=== PATIENT | male | born 1945 | race Caucasian/White ===

== ENCOUNTER 2019-05-01 10:00 | Emergency (ER) | payer MEDICARE, OTHER ==
[2019-05-01] MEDS ORDERED: Succinylcholine Chloride 20 MG/ML 10 ml SYRINGE FS ONE (12:42)
[2019-05-01] MEDS ORDERED: PROPOFOL 200 MG/20 ML VIAL ONE (12:42)
[2019-05-01] MEDS ORDERED: Lidocaine 1% PF 5 ML VIAL ONE (12:42)
--- NOTE | 2019-05-01 13:19 | CON ---
DATE OF CONSULTATION: 05/01/2019 HISTORY OF PRESENT ILLNESS: Mr. Hoyos is a 74-year-old gentleman, whom we have seen previously in the office, most recently for EGD and colonoscopy in 2015 for dysphagia and colon cancer screening. In the past, we have also seen for bolus obstruction in the esophagus. This last occurred in 12/2011, there was a ring at the GE junction at that time. He also has a prior history of colon polyps and short-segment Robledo esophagus. I was called as he was eating yesterday some chicken around noon, he felt it got stuck in his esophagus, he could not drink anything after that or swallow. He threw up multiple times throughout the day and night. He did not come to the emergency room. He did not call the on-call physician. Ultimately, he called this office this morning, asked about coming in to be seen for this and was directed that he come to the emergency room. Here, the emergency room doctor notes that they gave him a liter of fluid, they gave some glucagon with really no effect. These did not able to handle secretions and I was called. The patient denies any chest pain, shortness of breath, throat pain, or difficulty breathing. He denies any reflux. He is accompanied by his . PAST MEDICAL HISTORY: Hyperlipidemia, high cholesterol, Robledo esophagus, hypertension, previous partial lobectomy secondary to lung cancer, prior history of coronary artery bypass grafting, and previous EGD and colonoscopy. SOCIAL HISTORY: Negative for drugs or tobacco. ALLERGIES: NONE KNOWN. MEDICATIONS: 1. Aspirin. 2. Carvedilol. 3. Lisinopril. 4. Simvastatin. 5. Thalitone. 6. Dorzolamide eyedrops. PHYSICAL EXAMINATION: VITAL SIGNS: Blood pressure 179/84, respirations 16, and pulse 83. GENERAL: The patient is resting comfortably in bed. He is in no distress. . LUNGS: Clear. LUNGS: Clear. HEART: Regular rate and rhythm without clicks or murmurs. ABDOMEN: Soft, nontender. Definitely protuberant abdomen. EXTREMITIES: Reveal trace edema. No cyanosis or clubbing. ASSESSMENT: Likely, bolus obstruction of the esophagus, this has happened previously in the past. He also has had a previous history of Robledo esophagus, however, the last EGD in 2014 showed none. RECOMMENDATIONS: 1. EGD with removal of foreign body. He will need to be intubated for this. 2. He has a history of colon polyps, villous adenoma in 2015. He is overdue for followup, we would recommend after this to come back for a followup EGD and colonoscopy, for possible dilatation and removal of polyps. Job ID: [id number]
--- NOTE | 2019-05-01 16:38 | OP ---
DATE OF PROCEDURE: 05/01/2019 PREPROCEDURE DIAGNOSIS: Dysphagia with suspected bolus obstruction in the esophagus. POSTPROCEDURE DIAGNOSES: 1. Chicken bolus in the distal esophagus with a tight stricture, removed endoscopically. 2. Quite a bit of inflammation present in the gastroesophageal junction and some stricturing there, therefore dilatation was not performed in the acute setting. 3. Esophagogastroduodenoscopy with mild gastritis. 4. Normal duodenum. ANESTHESIA: General endotracheal anesthesia. RECOMMENDATIONS: 1. PPI daily. 2. [place] soft foods with no chicken, beef, nor bread until repeat EGD and dilatation. 3. Repeat EGD with dilatation in 1 to 2 weeks. The patient is also to follow up colonoscopy with regard to history of polyps and villous adenoma over 4 years ago. He is 1 year overdue presently. 4. History of Robledo esophagus. He is due for surveillance for that as well. PROCEDURE IN DETAIL: The patient was informed of the risk, benefits, and possible complications of endoscopy including perforation, bleeding, reaction to medication, and aspiration. Informed consent was obtained. The patient was brought to endoscopy suite, where he was sedated in gradual fashion. Once he was comfortable, he was intubated to secure the airway. The endoscope was then advanced into the esophagus, where a meat bolus was found in the distal esophagus. It was removed with a tripod grasping forceps, Garber retrieval net, and snare in combination. I spent about 20 minutes to get it broken down after removing enough those to fall into the stomach. Once this was cleared, the remainder of the esophagus was evaluated. There was quite a bit of edema and erosion at the GE junction as this bolus obstruction has been stuck for over 24 hours at this time. Dilatation was not performed for that reason. The stomach was found to be normal except for hiatal hernia and some antral gastritis. Retroflexed views were normal. The duodenum was normal. The scope was then removed. The patient tolerated the procedure well. There were no complications. He will be scheduled for a followup EGD in the outpatient setting in 1 to 2 weeks for dilatation of the stricture and will also proceed with surveillance colonoscopy at that time. Job ID: [id number]
== END 2019-05-01 15:00 | disposition home or self-care (01) ==
LOC: ERS 10:00
DX: T18.128A Food in esophagus causing other injury, initial encounter (principal); E78.5 Hyperlipidemia, unspecified; E78.00 Pure hypercholesterolemia, unspecified; I10 Essential (primary) hypertension; Z79.899 Other long term (current) drug therapy; Z79.82 Long term (current) use of aspirin
CPT/HCPCS: 99291; J2001; J2704; J7620

== ENCOUNTER 2019-08-07 10:10 | Outpatient (CLI) | payer MEDICARE, OTHER ==
--- NOTE | 2019-08-07 11:18 | RAD ---
CHEST 2 VIEWS: Date: 08/07/2019 HISTORY: Cough. COMPARISON: Radiograph dated 04/12/17. FINDINGS: The heart size is mildly enlarged. There is abnormally dilated left main pulmonary artery, although s imilar from the comparison examination. No confluent air space consolidation, pneumothorax, or effusion. Increased extrapleural flap along th e left lateral hemithorax, unchanged, possibly postsurgical in nature. IMPRESSION: Similar examination of the chest. Chronic findings. POS: C
[2019-08-07 14:32] LABS: ALT (SGPT) 11 U/L (8-55); AST (SGOT) 12 U/L (5-34); Albumin 4.1 g/dL (3.4-4.8); Alkaline Phosphatase 60 U/L (40-110); Anion Gap 11 mmol/L (10-20); BUN (Urea Nitrogen) 15 mg/dL (8.4-25.7); Bilirubin, Total 0.9 mg/dL (0.2-1.2); Calc. Creatinine Clearance 0 mL/min (70-130); Calcium 9.1 mg/dL (7.8-10.44); Carbon Dioxide 33 mmol/L (23-31); Cardiac Risk 3.4 (Less than 4.5); Chloride 95 mmol/L (98-107); Cholesterol 156 mg/dl (< 200 Desired); Estimated GFR-MDRD 85; Globulin 2.8 g/dL (2.4-3.5); Glucose 114 mg/dL (83-110); HDL Cholesterol 46 mg/dL (>60 Neg Risk); LDL Cholesterol, Calculated 92 mg/dL; Protein, Total 6.9 g/dL (5.8-8.1); Sodium 135 mmol/L (136-145); Triglycerides 91 mg/dL (Less than 150)
== END 2019-08-07 10:11 | disposition home or self-care (01) ==
LOC: SCSRAD 10:10
PROVIDERS: ATTEND Family Medicine
DX: R05 Cough (principal); E78.5 Hyperlipidemia, unspecified
CPT/HCPCS: 71046; 80053; 80061

== ENCOUNTER 2020-11-07 10:21 | Emergency (ER) | payer MEDICARE, OTHER ==
[2020-11-07 12:29] LABS: #Eosinphils 0.2 thou/uL (0.0-0.7); #Lymphocytes 1.2 thou/uL (1.20-3.40); #Monocytes 0.5 thou/uL (0.11-0.59); #Neutrophils 5.2 thou/uL (1.40-6.50); %Basophils 0.1 % (0.0-1.0); %Eosinophils 2.8 % (0.0-10.0); %Lymphocytes 16.3 % (21.0-51.0); %Monocytes 6.4 % (0.0-10.0); %Neutrophils 74.3 % (42.0-75.0); Hemoglobin 14.6 g/dL (14.0-18.0); Mean Corpuscular HGB CONC 34.2 g/dL (32.0-36.0); Mean Corpuscular Hemoglobin 33.1 pg (27.0-31.0); Mean Corpuscular Volume 96.7 fL (78.0-98.0); Mean Platelet Volume 7.1 fL (7.4-10.4); Platelet Count 202 thou/uL (130-400); RBC Distribution Width 11.6 % (11.5-14.5); Red Blood Cell (RBC) Count 4.42 mill/uL (4.70-6.10); White Blood Cell (WBC) Count 7.1 thou/uL (4.8-10.8)
[2020-11-07 12:35] LABS: PTT 27.9 sec (22.9-36.1); Prothrombin Time 13.2 sec (12.0-14.7)
[2020-11-07 12:48] LABS: ALT (SGPT) 14 U/L (8-55); AST (SGOT) 17 U/L (5-34); Albumin 3.9 g/dL (3.4-4.8); Alkaline Phosphatase 58 U/L (40-110); Anion Gap 16 mmol/L (10-20); BUN (Urea Nitrogen) 13 mg/dL (8.4-25.7); Bilirubin, Total 0.9 mg/dL (0.2-1.2); Calc. Creatinine Clearance 0 mL/min (70-130); Calcium 8.7 mg/dL (7.8-10.44); Carbon Dioxide 27 mmol/L (23-31); Chloride 97 mmol/L (98-107); Glucose 128 mg/dL (83-110); Potassium 3.6 mmol/L (3.5-5.1); Protein, Total 6.9 g/dL (5.8-8.1); Sodium 136 mmol/L (136-145)
[2020-11-07] MEDS ORDERED: Ondansetron HCl/PF 4 MG/2 ML Vial IVP PRN (12:59)
[2020-11-07 14:58] LABS: SARS-CoV-2 NAA Rapid Test Not Detected (NotDetected)
[2020-11-07] MEDS ORDERED: Succinylcholine 200 MG/10 ml SYRINGE FS ONE (15:12)
[2020-11-07] MEDS ORDERED: Lidocaine 1% PF 5 ML VIAL ONE (15:12)
[2020-11-07] MEDS ORDERED: PROPOFOL 200 MG/20 ML VIAL ONE (15:12)
[2020-11-07] MEDS ORDERED: Labetalol HCl 100 MG/20 ML VIAL ONE (16:23)
[2020-11-07] MEDS ORDERED: hydrALAZINE 20 MG/ML VIAL ONE (16:46)
== END 2020-11-07 14:25 | disposition admitted as inpatient to this hospital (09) ==
LOC: ERS 10:21
PROC: 0DC58ZZ Extirpation of Matter from Esophagus, Via Natural or Artificial Opening Endoscopic (ICD-10-PCS; principal; 2020-11-07)
DX: T18.128A Food in esophagus causing other injury, initial encounter (principal); E78.5 Hyperlipidemia, unspecified; E78.00 Pure hypercholesterolemia, unspecified; I10 Essential (primary) hypertension; Z79.82 Long term (current) use of aspirin; Z79.899 Other long term (current) drug therapy
CPT/HCPCS: 43247; 71045; 80053; 85025; 85610; 85730; 93005; 96374; 99285; J1610; U0002; 36415; J0360; J2704; J7620